=== PATIENT | male | born 1990 | race Caucasian/White ===

== ENCOUNTER 2023-01-07 14:16 | Emergency (ER) | payer OTHER ==
[2023-01-07 14:21] VITALS: BP 150/65
--- NOTE | 2023-01-07 14:25 | ED Physician Documentation ---
PD HPI LOWER EXT INJURY - Stated complaint Stated Complaint: SWOLLEN L ANKLE - Chief complaint Chief Complaint: Ext Problem - History obtained from History obtained from: Patient - History of Present Illness PD HPI LOW EXT INJURY LOCATION: Left, Ankle Type of injury: No: Fall, Blunt / blow Where injury occurred: Park Timing - onset: Yesterday (The patient noted onset of pain in the left ankle centrally and lateral starting yesterday. He had walked a generous hike approximately 14 miles the day before without any noted injury per se. Same walking shoes as usual. Onset of pain yesterday that has increased today and now bruising lateral.) Timing - duration: Days (1-2) Timing - details: Gradual onset, Still present Review of Systems Skin: denies: Abrasion (s), Laceration (s) Neurologic: denies: Focal weakness, Numbness PD PAST MEDICAL HISTORY - Past Medical History Cardiovascular: None Respiratory: Other Neuro: None Endocrine/Autoimmune: None GI: GERD : None HEENT: Other Psych: Depression, Anxiety, Claustrophobia Musculoskeletal: None Derm: None - Past Surgical History Past Surgical History: No Ortho: Other - Present Medications Home Medications: Ambulatory Orders Medication Instructions Recorded Confirmed Ondansetron Odt [Zofran] 4 mg TL Q6H PRN #10 tablet 09/19/14 10/03/14 Oxycodone HCl/Acetaminophen 1 - 2 each PO Q6H PRN #30 tablet 09/19/14 10/03/14 [Percocet 5-325 mg Tablet] ALPRAZolam [Xanax] 1 PRN 10/02/14 10/03/14 Cetirizine [ZyrTEC] 10 mg PO DAILY #15 tablet 01/17/20 Ketotifen Fumarate 2 drops EACHEYE QID #5 ml 01/17/20 Polymyxin B/Trimeth Ophth Drop 2 drops EACHEYE Q3H #1 bottle 01/17/20 [Polytrim Ophth Drops] - Allergies Allergies/Adverse Reactions: Allergies Allergy/AdvReac Type Severity Reaction Status Date / Time No Known Drug Allergies Allergy Verified 01/07/23 14:19 - Social History Does the pt smoke?: No Smoking Status: Former smoker Does the pt drink ETOH?: No Does the pt have substance abuse?: Yes - Immunizations Immunizations are current?: No Immunizations: TDAP current <10years - POLST Patient has POLST: No PD ED PE NORMAL - Vitals Vital signs reviewed: Yes - General General: Alert and oriented X 3, Well developed/nourished - Derm Derm: Normal color, Warm and dry - Extremities Extremities: Other (The left ankle shows some tenderness and early purplish bruising in the inframalleolar aspect. Inversion stress causes a little bit of pain but not much. There is no redness nor warmth of the area. The Achilles is firm and nontender.) - Neuro Neuro: No motor deficit, No sensory deficit Results - Vitals Vitals: Vital Signs - 24 hr 01/07/23 14:19 Temperature 36.5 C Heart Rate 66 Respiratory 16 Rate Blood Pressure 150/65 H O2 Saturation 97 Oxygen O2 Source Room air - Rads (name of study) left ankle Radiology: Prelim report reviewed, EMP read indepedently (no fractures seen.), See rad report PD Medical Decision Making - ED course Complexity details: reviewed results (xray shows normal bony structure. ), considered differential (There is bruising and pain along the inframalleolar aspect laterally. There is no warmth redness or tenderness to light touch. Some tender to deeper palpation. No pain with inversion stress. Presume ligament/tendon injury with the bruising developing. Xray without fracture. exam not c/w gout. ), d/w patient Departure - Departure Disposition: 01 Home, Self Care Clinical Impression: Sprain of lateral ligament of ankle joint Condition: Stable Record reviewed to determine appropriate education?: Yes Instructions: ED Sprain Ankle Comments: Your x-ray appears normal without any signs of fracture or bony irregularity. I presume you had some inflammation and minor injury of the ligaments or tendon at that part of the ankle with some bleeding developed. The pressure within and around the joint can spread out a small area of bleeding to have it appear in a larger area and does not mean that that whole area is damaged. You can use the ankle brace when up and around to help reduce motion through the ankle and hopefully therefore less symptoms. Activity as tolerated. Tylenol or ibuprofen as needed for pains. I would anticipate improvement over the next week or so but it might even be 1 or 2 weeks for most improvement. Discharge Date/Time: 01/07/23 15:36
--- NOTE | 2023-01-07 15:44 | XRAY Report ---
PROCEDURE: Ankle 3 View LT INDICATIONS: lateral swelling and pain on ROM TECHNIQUE: 3 views of the ankle were acquired. COMPARISON: None FINDINGS: Bones: No fractures or dislocations. Ankle mortise is normally aligned. No suspicious bony lesions . Soft tissues: No tibiotalar joint effusion. Achilles tendon appears normal. IMPRESSION: Normal left ankle. Reviewed by: Daiana Vilchis MD on 01/07/2023 3:43 PM PST Approved by: Daiana Vilchis MD on 01/07/2023 3:43 PM PST Station ID: [id number]
== END 2023-01-07 15:36 | disposition home or self-care (01) ==
LOC: ED 14:16
DX: S93.492A Sprain of other ligament of left ankle, initial encounter (principal); X58.XXXA Exposure to other specified factors, initial encounter; Y93.01 Activity, walking, marching and hiking; Z87.891 Personal history of nicotine dependence
CPT/HCPCS: 99283

== ENCOUNTER 2023-12-18 22:43 | Emergency (ER) | payer OTHER ==
[2023-12-18 22:52] VITALS: BP 105/70; O2SAT 99
--- NOTE | 2023-12-18 22:55 | ED Physician Documentation ---
History of Present Illness - Stated complaint Stated Complaint: RASH ON NECK/PANIC ATTACK - Chief complaint Chief Complaint: Allergic Rx - History obtained from History obtained from: Patient - Additonal information Additional information: HPI from patient. Patient presents with near-syncope and anxiety. Patient noticed a rash on his neck since this morning which she thought might be "razor burn" (per patient). He applied a cream to it this evening, approximately 30 minutes [employer]. He says that the cream cause some mild burning discomfort. He rapidly became lightheaded, nauseas (no vomiting), had generalized weakness. He denies palpitations, dyspnea, chest pain, rash. His symptoms have been waxing and waning since onset. Symptoms are improved (though not resolved) with sitting/lying down, and worse with standing. He denies h/o similar symptoms. Denies visual changes, denies FRANCO, denies fever.He says he has been using marijuana tonight but not unusual for him (and he has not had these symptoms with marijuana use in the past). The patient says he thinks he might have had an allergic reaction to the cream he applied to his neck which then caused a panic attack. Review of Systems Cardiac: reports: Reviewed and negative Respiratory: reports: Reviewed and negative GI: reports: Nausea. denies: Abdominal Pain, Vomiting Skin: reports: Rash (rash on neck since this AM; no other rashes noted) Neurologic: reports: Generalized weakness, Near syncope. denies: Focal weakness, Numbness, Syncope, Confused, Altered mental status, Headache PD PAST MEDICAL HISTORY - Past Medical History Past Medical History: Yes Cardiovascular: None Respiratory: Other Neuro: None Endocrine/Autoimmune: None GI: GERD : None HEENT: Other Psych: Depression, Anxiety, Claustrophobia Musculoskeletal: None Derm: None - Past Surgical History Past Surgical History: Yes Ortho: Other - Present Medications Home Medications: Ambulatory Orders Medication Instructions Recorded Confirmed Ondansetron Odt [Zofran] 4 mg TL Q6H PRN #10 tablet 09/19/14 10/03/14 Oxycodone HCl/Acetaminophen 1 - 2 each PO Q6H PRN #30 tablet 09/19/14 10/03/14 [Percocet 5-325 mg Tablet] ALPRAZolam [Xanax] 1 PRN 10/02/14 10/03/14 Cetirizine [ZyrTEC] 10 mg PO DAILY #15 tablet 01/17/20 Ketotifen Fumarate 2 drops EACHEYE QID #5 ml 01/17/20 Polymyxin B/Trimeth Ophth Drop 2 drops EACHEYE Q3H #1 bottle 01/17/20 [Polytrim Ophth Drops] - Allergies Allergies/Adverse Reactions: Allergies Allergy/AdvReac Type Severity Reaction Status Date / Time No Known Drug Allergies Allergy Verified 12/18/23 22:48 - Social History Does the pt smoke?: No Smoking Status: Never smoker Does the pt drink ETOH?: No Does the pt have substance abuse?: Yes Substance Use and Type: Marijuana - Immunizations Immunizations are current?: No Immunizations: TDAP current <10years - POLST Patient has POLST: No PD ED PE NORMAL - Vitals Vital signs reviewed: Yes - General General: Alert and oriented X 3, No acute distress, Well developed/nourished - HEENT HEENT: PERRL, EOMI - Neck Neck: Supple, no meningeal sign - Cardiac Cardiac: RRR, No murmur, No gallop, No rub - Respiratory Respiratory: No respiratory distress, Clear bilaterally - Abdomen Abdomen: Soft, Non tender - Derm Derm: Normal color, Warm and dry - Neuro Neuro: Alert and oriented X 3, 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 Relevant findings are: Rate: Rate (enter#) (64) Rhythm: NSR [place]: Normal Intervals: Normal [place] QRS: Normal Ischemia: Normal ST segments - Labs Labs: Laboratory Tests 12/19/23 00:38 POC Whole Bld Glucose 95 PD Medical Decision Making - ED course Complexity details: reviewed results, re-evaluated patient, considered differential, d/w patient ED course: Normal EKG. FSBS 95. No findings on exam to support allergic reaction (no rash except folliculitis on neck, lungs clear, normal BP, normal pulse). In further discussion, he says he has intermittent paresthesias of his lips and tongue, and, to a lesser extent, his hands. Anxiety/panic attack is suspected. He is given 0.5mg PO lorazepam and discharged (he is observed in ED for over 90 minutes, gradually improved even before given the lorazepam). Return precautions discussed. Departure - Departure Disposition: 01 Home, Self Care Clinical Impression: Anxiety Condition: Good Instructions: ED Panic Attack Comments: I suspect your symptoms are due to anxiety/panic attack. There were no abnormalities on the EKG, and your vital signs were normal during your ER stay. Follow-up with your primary care provider, next available appointment, for reevaluation. Certainly, you can return to the emergency department at any time for reevaluation, particularly if your symptoms worsen or if you develop new/concerning signs/symptoms (such as fever, confusion, visual changes, headache). Discharge Date/Time: 12/19/23 00:43
[2023-12-19] MEDS: LORazepam 0.5 MG TABLET PO STA (00:41)
== END 2023-12-19 00:43 | disposition home or self-care (01) ==
LOC: ED 22:43
DX: F41.9 Anxiety disorder, unspecified (principal); F32.A Depression, unspecified; Z79.899 Other long term (current) drug therapy
CPT/HCPCS: 93005; 99283